=== PATIENT | female | born 1995 | race Caucasian/White ===

== ENCOUNTER → 2021-01-22 | Outpatient (CLI) | payer OTHER | END | disposition home or self-care (01) | LOC: STAR 14:30 | PROVIDERS: ATTEND Surgery | DX: Z20.822 Contact with and (suspected) exposure to COVID-19 (principal); R22.32 Localized swelling, mass and lump, left upper limb | CPT/HCPCS: U0003; U0005 ==

== ENCOUNTER 2021-01-28 10:39 | Day surgery (SDC) | payer OTHER ==
[~2021-01-28] VITALS: Ht 182.9 cm; Wt 136.6 kg
[~2021-01-28 10:39] MED LIST: BUPIVACAINE/PF 0.5% ONE; EPINEPHRINE 1 MG/ML, 1ML ONE
[2021-01-28 11:07] VITALS: BP 128/87
[2021-01-28] MEDS ORDERED: CHLORHEXIDINE 15 ML UDC ONE (11:12)
[2021-01-28 11:15] LABS: HCG UR SG 1.027 (1.003-1.030)
[2021-01-28] MEDS ORDERED: CHLORHEXIDINE 15 ML UDC PO ONE (11:30)
[2021-01-28] MEDS ORDERED: LACTATED RINGERS 1,000 ML IV SCH (11:30)
[2021-01-28] MEDS ORDERED: FENTANYL PF 250 MCG/5ML ONE (11:46)
[2021-01-28] MEDS ORDERED: MIDAZOLAM 1 MG/ML, 2ML ONE (11:46)
[2021-01-28] MEDS ORDERED: PROPOFOL 10 MG/ML, 20ML ONE (11:47)
[2021-01-28] MEDS ORDERED: ONDANSETRON 2MG/ML, 2ML ONE (11:47)
[2021-01-28] MEDS ORDERED: CEFAZOLIN 1,000 MG ONE ×2 (11:47→12:37)
[2021-01-28] MEDS ORDERED: HYDROmorphone 1 MG/ML, 1ML INJ IVPush PRN (12:30)
[2021-01-28] MEDS ORDERED: OXYcodone 5 MG/5 ML ORAL.SOL UDC PO PRN (12:30)
[2021-01-28] MEDS ORDERED: ACETAMINOPHEN 325 MG TABLET PO PRN (12:30)
[2021-01-28] MEDS ORDERED: HALOPERIDOL 5 MG/ML IV PRN (12:30)
[2021-01-28] MEDS ORDERED: FENTANYL PF 100 MCG/2ML IV PRN (12:30)
[2021-01-28] MEDS ORDERED: LABETALOL 5MG/ML, 20ML IV PRN (12:30)
[2021-01-28] MEDS ORDERED: MEPERIDINE/PF 25MG/0.5ML IVPush PRN (12:30)
[2021-01-28] MEDS ORDERED: morphine SULFATE 10 MG/ML, 1ML IVPush PRN (12:30)
[2021-01-28] MEDS ORDERED: hydrALAzine 20 MG/ML, 1ML IV PRN (12:30)
[2021-01-28] MEDS ORDERED: PROMETHAZINE 25 MG/ML, 1ML IVPush PRN (12:30)
[2021-01-28] MEDS ORDERED: DEXAMETHASONE 4 MG/ML, 1ML ONE (12:36)
[2021-01-28] MEDS ORDERED: HYDR-2214 PO (14:27)
== END 2021-01-28 14:07 | disposition home or self-care (01) ==
LOC: OUT 10:39
PROVIDERS: ATTEND Surgery
DX: L73.2 Hidradenitis suppurativa (principal); Z79.899 Other long term (current) drug therapy; Z72.89 Other problems related to lifestyle; Z98.890 Other specified postprocedural states
CPT/HCPCS: 11450; 81025; 88305; J0171; J0690; J1100; J2250; J2405; J2704; J3010; J7120